=== PATIENT | female | born 1995 | race African-American/Black ===

== ENCOUNTER 2023-08-01 17:45 | Emergency (ER) | payer SELFPAY ==
[~2023-08-01] VITALS: Ht 162.6 cm; Wt 99.0 kg
[2023-08-01 17:55] VITALS: TEMP 97.8; O2SAT 100
[2023-08-01] MEDS ORDERED: METH-653 MT (18:20)
[2023-08-01] MEDS ORDERED: IBUP-2029 MT (18:20)
[2023-08-01] MEDS: IBUPROFEN 600MG TABLET PO ONE (18:37)
[2023-08-01] MEDS: METHOCARBAMOL 500MG TABLET PO ONE (18:37)
[2023-08-01 19:27] VITALS: BP 134/90; PULSE 59; RESP 16
== END 2023-08-01 19:29 | disposition home or self-care (01) ==
LOC: ER 17:45
DX: S13.4XXA Sprain of ligaments of cervical spine, initial encounter (principal); F41.9 Anxiety disorder, unspecified; E11.9 Type 2 diabetes mellitus without complications; V49.59XA Passenger injured in collision with other motor vehicles in traffic accident, initial encounter; Y93.89 Activity, other specified; Y92.89 Other specified places as the place of occurrence of the external cause; Y99.8 Other external cause status
CPT/HCPCS: 81025; 99283